=== PATIENT | female | born 1990 | race Caucasian/White ===

== ENCOUNTER 2016-09-02 11:13 | Inpatient (IN) | payer OTHER ==
[~2016-09-02] VITALS: Ht 149.9 cm; Wt 75.0 kg
[~2016-09-02 11:13] MED LIST: EPHEDrine SULFATE 50 MG/5 ML SYG ONE; OXYTOCIN 30 UNITS/LR 500 ML BAG IV ONE; PREN1TAB17 PO
[2016-09-02 11:22] VITALS: Ht 149.9 cm; Wt 75.0 kg
[2016-09-02 11:23] VITALS: BP 127/95; PULSE 93; RESP 19
[2016-09-02] MEDS ORDERED: LACTATED RINGER'S 1,000 ML IV SCH (11:51)
[2016-09-02] MEDS ORDERED: MISOPROSTOL 200 MCG TAB PR PRN ×2 (12:00→18:30)
[2016-09-02] MEDS ORDERED: OXYTOCIN 30 UNITS/LR 500 ML IV PRN ×2 (12:00→18:30)
[2016-09-02] MEDS ORDERED: METHYLERGONOVINE 0.2 MG INJ IM PRN ×2 (12:00→18:30)
[2016-09-02] MEDS ORDERED: CARBOPROST 250 MCG INJ IM PRN ×2 (12:00→18:30)
[2016-09-02] MEDS ORDERED: OXYTOCIN 30 UNITS/LR 500 ML IV SCH (12:00)
[2016-09-02] MEDS ORDERED: CEFAZOLIN 2 GM/50 ML (PMX) 50 ML IV SCH (12:00)
[2016-09-02 12:03] LABS: ADD SCAN DIFF NO
[2016-09-02 12:13] LABS: BASOPHILS % 0.4 % (0.0-2.0); EOSINOPHILS # 0.1 10^3/ul (0.0-0.5); EOSINOPHILS % 0.8 % (0.0-7.0); HEMATOCRIT 41.2 % (37.0-47.0); HEMOGLOBIN 13.3 g/dl (12.0-16.0); LYMPHOCYTES # 2.1 10^3/ul (0.8-2.9); LYMPHOCYTES % 25.3 % (15.0-51.0); MEAN CORPUSCULAR HGB CONC 32.3 g/dl (32.0-37.0); MEAN CORPUSCULAR VOLUME 80.5 fl (82.0-101.0); MEAN PLATELET VOLUME 12.6 fl (7.4-10.4); MONOCYTE # 0.4 10^3/ul (0.3-0.9); NEUTROPHIL # 5.7 10^3/ul (1.6-7.5); NEUTROPHILS % 68.1 % (39.0-77.0); PLATELET COUNT 203 10^3/UL (140-415); RED BLOOD COUNT 5.12 10^6/ul (4.20-5.40); RED CELL DISTRIBUTION WIDTH 16.4 % (11.5-14.5); WHITE BLOOD COUNT 8.3 10^3/ul (4.8-10.8)
[2016-09-02 12:17] LABS: INR 0.95; PARTIAL THROMBOPLASTIN TIME 27.4 Sec (25.0-35.0); PROTIME 12.7 Sec (12.2-14.2)
[2016-09-02] MEDS ORDERED: NALOXONE (0.4 MG/ML) INJ IV PRN (13:00)
[2016-09-02] MEDS ORDERED: DIPHENHYDRAMINE 50 MG INJ IV PRN (13:00)
[2016-09-02] MEDS ORDERED: HYDROmorphONE 1 MG/ML SYG IV PRN ×2 (13:00)
[2016-09-02] MEDS ORDERED: ONDANSETRON 4 MG INJ IV PRN ×2 (13:00)
[2016-09-02] MEDS ORDERED: HYDROmorphONE (0.2 MG/ML) 10ML SYG IV PRN ×3 (13:00)
[2016-09-02] MEDS ORDERED: MEPERIDINE 25 MG INJ IV PRN (13:00)
[2016-09-02] MEDS ORDERED: FENTAnyl 50 MCG/ML VIAL IV PRN (13:00)
[2016-09-02] MEDS ORDERED: CITRIC ACID/NA CITRATE 30 ML CUP PO ONE (13:00)
[2016-09-02] MEDS ORDERED: morphine SULFATE/PF (10 MG/10 ML) INJ ONE (13:05)
[2016-09-02] MEDS ORDERED: PHENYLephrine (100 MCG/ML) 5ML SYG ONE ×3 (13:06→14:06)
--- NOTE | 2016-09-02 14:21 | HP ---
DATE OF ADMISSION: 09/02/2016 HISTORY OF PRESENT ILLNESS: This is a 26-year-old female, 3, para 2 with history o f 2 previous C-sections with EDC of 09/12/2016. Originally was scheduled for 09/07/2016. Came into the hospital with contractions, being prepared to undergo a repeat for the 3rd time. Thi s patient has been under the care of the [facility] and her course was not compl icated with gestational diabetes, -induced hypertension, or any other serious medical or castillo rgical conditions except 2 previous sections. ALLERGIES: SHE IS NOT ALLERGIC TO ANY KNOWN MEDICATION. SOCIAL HISTORY: Does not smoke or drink. FAMILY HISTORY: Not remarkable. REVIEW OF SYSTEMS: Within normal. PHYSICAL EXAMINATION: VITAL SIGNS: 59 inches, 165 pounds. Total weight gain during the 9 pounds. Temperature 97.7, pulse of 75, respirations 16, and blood pressure 156/96. HEAD, EARS, NOSE, AND THROAT: Negative. NECK: Supple. No thyromegaly. LUNGS: Clear to P and A. HEART: Normal sinus rhythm, no murmur. BREASTS: Status compatible with state of the . No abnormal palpable mass. No nipple retr action or discharge. No axillary adenopathy. No supraclavicular adenopathy. ABDOMEN: Measures approximately 37 cm from symphysis pubis with a heart rate in the 130s. Co ntractions every 2 to 5 minutes. PELVIC: Examination deferred. EXTREMITIES: No edema. No varicosities. IMPRESSION: 1. Intrauterine at 38 weeks and 4 days. 2. History of 2 previous sections, in labor. PLAN OF TREATMENT: Repeat section. The patient was counseled regarding the complication o f the surgery including bowel or bladder injury, infection, hemorrhage, and hematoma, and she is cassie ling to go ahead with this procedure. Dictated By: REJI CRAFT/NTS Conf#: [id number] DID#: [id number]
--- NOTE | 2016-09-02 15:14 | OPR ---
DATE OF OPERATION: 09/02/2016 PREOPERATIVE DIAGNOSIS: Intrauterine at 38 weeks and 4 days. History of 2 previous sections, in active labor. POSTOPERATIVE DIAGNOSIS: Intrauterine at 38 weeks and 4 days, history of 2 previous sections, in active labor. PROCEDURE PERFORMED: Repeat section. SURGEON: Reji Pettit MD LAST GREASER: Rakesh Ritchie MD ANESTHESIOLOGIST:DR Coleman FINDINGS: Live baby girl, Apgars 8 and 9. DETAILS OF THE PROCEDURE: Under satisfactory spinal anesthesia, the patient was prepped and draped and placed in supine position, tilted to the left. Pfannenstiel incision was made. Old scar was removed. Incision carried through the subcutaneous tissue. Bleeders brought under control with electrocautery. Fascia incised to the length of the incision. Rectus muscle divided in midline. Peritoneum entered through a transverse incision. Upon entry into the abdominal cavity, it was noted the lower segment of the uterus was extremely thinned out. Normal-appearing tubes and ovaries. Bladder flap was developed. Transverse incision was made in the lower segment of the uterus. Amniotic sac ruptured. Clear amniotic fluid noted. Live baby girl was delivered from unengaged vertex. Nasal oropharyngeal suction was performed. Baby handed to the team for immediate attention. The patient received 20 units of Pitocin. Placenta delivered manually intact. Uterine cavity cleaned with wet sponge and drainage established. Uterus closed in 2 layers using Monocryl #1 in continuous fashion. Peritoneal cavity irrigated with warm saline. Sponge, needle and instrument reported to be correct. Abdominal peritoneum closed with 2-0 chromic catgut continuously. Rectus muscle approximated with a few interrupted 2-0 chromic catgut. Fascia closed with #1 PDS in a continuous fashion. Subcutaneous tissue approximated and repaired with continuous 2-0 chromic catgut and the skin closed with lindsey. Estimated blood loss 600 to 700 mL. Urine bag contained 300 mL of clear urine. The patient tolerated the procedure well, transferred to recovery room in a good condition. Dictated By: REJI PETTIT MD HF/NTS Conf#: [id number] DID#: [id number] MTDD
[2016-09-02 17:55] VITALS: BP 122/85; PULSE 69; RESP 18
[2016-09-02] MEDS ORDERED: CEFAZOLIN 1 GM/50 ML (PMX) 50 ML IVPB SCH (18:30)
[2016-09-02] MEDS ORDERED: ACETAMINOPHEN/CODEINE #3 TAB PO PRN ×2 (18:30)
[2016-09-02] MEDS ORDERED: OXYCODONE/ACETAMINOPHEN (5/325) TAB PO PRN (18:30)
[2016-09-02] MEDS ORDERED: LANOLIN 7 GM TUBE TOP PRN (18:30)
[2016-09-02] MEDS: OXYTOCIN 30 UNITS/LR 500 ML IV SCH ×2 (18:48→23:25)
[2016-09-02 18:55] VITALS: BP 115/77; PULSE 77; RESP 16
[2016-09-02] MEDS: KETOROLAC 30 MG INJ IV PRN (20:11)
[2016-09-02 20:15] VITALS: BP 120/81; PULSE 73; RESP 18
[2016-09-02] MEDS: DIPHENHYDRAMINE 50 MG INJ IV PRN (20:29)
[2016-09-02 23:50] VITALS: BP 115/69; PULSE 87; RESP 18
[2016-09-03] MEDS: OXYTOCIN 30 UNITS/LR 500 ML IV SCH ×3 (03:38→10:12)
[2016-09-03 04:10] VITALS: BP 115/67; PULSE 90; RESP 18
[2016-09-03] MEDS: DIPHENHYDRAMINE 50 MG INJ IV PRN (06:21)
[2016-09-03 08:02] LABS: ADD SCAN DIFF NO
[2016-09-03 08:05] LABS: BASOPHILS % 0.2 % (0.0-2.0); EOSINOPHILS # 0.1 10^3/ul (0.0-0.5); EOSINOPHILS % 0.5 % (0.0-7.0); HEMATOCRIT 29.2 % (37.0-47.0); HEMOGLOBIN 9.4 g/dl (12.0-16.0); LYMPHOCYTES # 2.3 10^3/ul (0.8-2.9); LYMPHOCYTES % 20.9 % (15.0-51.0); MEAN CORPUSCULAR HEMOGLOBIN 26.2 pg (29.0-33.0); MEAN CORPUSCULAR HGB CONC 32.2 g/dl (32.0-37.0); MEAN CORPUSCULAR VOLUME 81.3 fl (82.0-101.0); MEAN PLATELET VOLUME 12.4 fl (7.4-10.4); MONOCYTE # 0.8 10^3/ul (0.3-0.9); MONOCYTES % 7.2 % (0.0-11.0); NEUTROPHIL # 7.7 10^3/ul (1.6-7.5); NEUTROPHILS % 70.9 % (39.0-77.0); PLATELET COUNT 138 10^3/UL (140-415); RED BLOOD COUNT 3.59 10^6/ul (4.20-5.40); WHITE BLOOD COUNT 10.9 10^3/ul (4.8-10.8)
[2016-09-03] MEDS: LACTATED RINGER'S 1,000 ML IV SCH ×2 (08:22→15:00)
[2016-09-03] MEDS: KETOROLAC 30 MG INJ IV PRN (08:22)
[2016-09-03 09:00] VITALS: BP 108/65; PULSE 89; RESP 18
--- NOTE | 2016-09-03 09:08 | CONS ---
Date/Time of Note Date/Time of Note DATE: 09/03/16 TIME: 09:04 Consultation Date/Type/Reason Admit Date/Time Sep 02, 2016 at 11:46 Initial Consult Date 09/03/16 Type of Consultation: Anesthesiology Reason for Consultation Post-op visit 24 HR Interval Summary Free Text/Dictation Pt seen and examined s/p POD#1 received Duramorph spinal anesthetic for post-op pain x24 hours. Pt states she has mild pain which is controlled adequately, no N/V/D/SUNSHINE. Will follow up PRN. Hematology Test 09/02/16 11:50 09/03/16 07:30 Hematocrit 41.2% (37.0-47.0) # 29.2% (37.0-47.0) #L Hemoglobin 13.3g/dl (12.0-16.0) 9.4g/dl (12.0-16.0) #L Mean Corpuscular Hemoglobin 26.0pg (29.0-33.0) L 26.2pg (29.0-33.0) L Mean Corpuscular Hemoglobin Concent 32.3g/dl (32.0-37.0) 32.2g/dl (32.0-37.0) Mean Corpuscular Volume 80.5fl (82.0-101.0) L 81.3fl (82.0-101.0) L Mean Platelet Volume 12.6fl (7.4-10.4) H 12.4fl (7.4-10.4) H Platelet Count 65532^3/UL (140-415) 98175^3/UL (140-415) #L Red Blood Count 5.1210^6/ul (4.20-5.40) # 3.5910^6/ul (4.20-5.40) #L Red Cell Distribution Width 16.4% (11.5-14.5) H 17.0% (11.5-14.5) H White Blood Count 8.310^3/ul (4.8-10.8) # 10.910^3/ul (4.8-10.8) #H Constitutional: no complaints Exam/Review of Systems Vital Signs Vitals Vital Signs Date Time Temp Pulse Resp B/P Pulse Ox O2 Delivery O2 Flow Rate FiO2 09/03/16 04:10 98.9 90 18 115/67 Room Air 09/02/16 11:23 99 Intake and Output 09/02/16 09/02/16 09/03/16 15:00 23:00 07:00 Intake Total 1000 ml 950 ml 1350 ml Output Total 800 ml 844 ml 850 ml Balance 200 ml 106 ml 500 ml Results Result Diagram: 09/03/16 0730 Results 24 hrs Laboratory Tests Test 09/02/16 11:50 09/03/16 07:30 White Blood Count 8.3 # 10.9 #H Red Blood Count 5.12 # 3.59 #L Hemoglobin 13.3 9.4 #L Hematocrit 41.2 # 29.2 #L Mean Corpuscular Volume 80.5 L 81.3 L Mean Corpuscular Hemoglobin 26.0 L 26.2 L Mean Corpuscular Hemoglobin Concent 32.3 32.2 Red Cell Distribution Width 16.4 H 17.0 H Platelet Count 203 138 #L Mean Platelet Volume 12.6 H 12.4 H Neutrophils % 68.1 70.9 Lymphocytes % 25.3 20.9 Monocytes % 5.0 7.2 Eosinophils % 0.8 0.5 Basophils % 0.4 0.2 Nucleated Red Blood Cells % 0.0 0.0 Neutrophils # 5.7 7.7 H Lymphocytes # 2.1 2.3 Monocytes # 0.4 0.8 Eosinophils # 0.1 0.1 Basophils # 0.0 0.0 Nucleated Red Blood Cells # 0.0 0.0 Prothrombin Time 12.7 Prothrombin Time Ratio 1.0 INR International Normalized Ratio 0.95 Activated Partial Thromboplast Time 27.4 Rapid Plasma Reagin NONREACTIVE Hepatitis B Surface Antigen NEGATIVE Medications Medications Current Medications Ketorolac Tromethamine (Toradol) 30 mg Q6H PRN IV PAIN Last administered on t 08:22; Admin Dose 30 MG; Start 09/02/16 at 13:00; Stop 09/03/16 at 12:59 Hydromorphone HCl (Dilaudid) 0.2 mg Q3H PRN IV PAIN LEVEL 1-5; Start 09/02/16 at 13:00; Stop 09/03/16 at 12:59 Hydromorphone HCl (Dilaudid) 0.4 mg Q3H PRN IV PAIN LEVEL 6-10; Start 09/02/16 at 13:00; Stop 09/03/16 at 12:59 Diphenhydramine HCl (Benadryl) 25 mg Q6H PRN IV ITCHING Last administered on t 06:21; Admin Dose 25 MG; Start 09/02/16 at 13:00; Stop 09/03/16 at 12:59 Ondansetron HCl (Zofran Inj) 4 mg Q6H PRN IV NAUSEA AND/OR VOMITING; Start at 13:00; Stop 09/03/16 at 12:59 Acetaminophen/ Codeine Phosphate (Tylenol No.3) 1 tab Q4H PRN PO PAIN LEVEL 4-6 ; Start 09/02/16 at 18:30 Acetaminophen/ Codeine Phosphate (Tylenol No.3) 2 tab Q4H PRN PO PAIN LEVEL 7- 10; Start 09/02/16 at 18:30 Oxycodone/ Acetaminophen (Percocet (5/ 325)) 1 tab Q4H PRN PO PAIN LEVEL 4-6; Start 09/02/16 at 18:30 Oxycodone/ Acetaminophen (Percocet (5/ 325)) 2 tab Q4H PRN PO PAIN LEVEL 7-10; Start 09/02/16 at 18:30 Ibuprofen (Motrin) 600 mg Q6 PO ; Start 09/03/16 at 18:00 Simethicone (Mylicon) 160 mg Q8H PRN PO DISTENSION/GAS/BLOATING; Start at 18:30 Senna/Docusate Sodium (Senokot-S) 1 tab BID PO ; Start 09/03/16 at 09:00 Diphtheria/ Tetanus/Acell Pertussis 0.5 ml 0.5 ml ONCE ONCE IM* ; Start at 09:00; Stop 09/05/16 at 09:01 Oxytocin/Lactated Ringer's 500 ml @ 0 mls/hr ONCE PRN IV For Hemorrhage Management; Start 09/02/16 at 18:30 Methylergonovine Maleate (Methergine) 0.2 mg ONCE PRN IM VAGINAL BLEEDING; Start 09/02/16 at 18:30 Carboprost Tromethamine (Hemabate) 250 mcg ONCE PRN IM VAGINAL BLEEDING; Start 09/02/16 at 18:30 Misoprostol 1000 mcg 1,000 mcg ONCE PRN RI VAGINAL BLEEDING; Start 09/02/16 at 18:30 Oxytocin/Lactated Ringer's 500 ml @ 125 mls/hr Q4H IV Last administered on 03:38; Admin Dose 125 MLS/HR; Start 09/02/16 at 18:12 Influenza Virus Vaccine 0.5 ml 0.5 ml ONCE ONCE IM* ; Start 09/04/16 at 09:00; Stop 09/04/16 at 09:01 Lactated Ringer's (Lr) 1,000 ml @ 125 mls/hr Q8H IV Last administered on 08:22; Admin Dose 125 MLS/HR; Start 09/03/16 at 07:00 DOROTA URRUTIA Sep 03, 2016 09:08
[2016-09-03] MEDS: SENNA/DOCUSATE NA (8.6MG/50MG) TAB PO SCH ×2 (10:33→23:25)
[2016-09-03 12:00] VITALS: BP 120/86; PULSE 97; RESP 18
[2016-09-03 16:00] VITALS: BP 122/78; PULSE 90; RESP 18
--- NOTE | 2016-09-03 16:38 | PN ---
Date/Time of Note Date/Time of Note DATE: 09/03/16 TIME: 16:35 OB Subjective Subjective Subjective Post day 1g Afebrile vital signs stable blood pressure 122/78, hemoglobin 9.4 it was to 0.9 before surgery abdomen soft mildly distended bowel sounds present, lochia normal , extremity normal REJI PETTIT MD Sep 03, 2016 16:38
[2016-09-03] MEDS: IBUPROFEN 600 MG TAB PO SCH ×2 (18:18→23:25)
[2016-09-03 20:00] VITALS: BP 100/56; PULSE 96; RESP 19
[2016-09-04 04:00] VITALS: BP 101/52; PULSE 94; RESP 17
[2016-09-04] MEDS: IBUPROFEN 600 MG TAB PO SCH ×3 (05:32→18:02)
[2016-09-04 08:22] VITALS: BP 108/64; PULSE 87; RESP 18
[2016-09-04] MEDS ORDERED: INFLUENZA VIRUS VACCINE 0.5 ML (DISPENSING) IM* ONE (09:00)
[2016-09-04] MEDS: SENNA/DOCUSATE NA (8.6MG/50MG) TAB PO SCH ×2 (09:27→21:43)
[2016-09-04] MEDS: OXYCODONE/ACETAMINOPHEN (5/325) TAB PO PRN ×2 (11:14→18:02)
[2016-09-04 16:00] VITALS: BP 102/56; PULSE 80; RESP 18
--- NOTE | 2016-09-04 16:14 | PN ---
Date/Time of Note Date/Time of Note DATE: 09/04/16 TIME: 16:12 OB Subjective Subjective Subjective September 04, 2016 Hospital visit post day 2 Post day 1 Patient is doing well, Ambulatory She is afebrile Abdomen is soft , Fundus is firm Moderate amount of lochia Breasts are soft, Nipples are intact No calf tenderness. Incision is healing well. Breast feeding the new born. Current Medications Medications (Trade) Dose Ordered Sig/Major Route PRN Reason Start Time Stop Time Status Last Admin Dose Admin Lactated Ringer's 1,000 ml @ 125 mls/hr Q8H IV 09/02/16 11:51 09/02/16 18:15 DC 09/02/16 12:41 Cefazolin Sodium/ Dextrose 50 ml @ 100 mls/hr ONCE IV 09/02/16 12:00 09/02/16 18:15 DC Oxytocin/Lactated Ringer's 500 ml @ 125 mls/hr ONCE IV 09/02/16 12:00 09/02/16 18:15 DC 09/02/16 15:16 Oxytocin/Lactated Ringer's 500 ml @ 0 mls/hr ONCE PRN IV For Hemorrhage Management 09/02/16 12:00 09/02/16 18:15 DC Methylergonovine Maleate (Methergine) 0.2 mg ONCE PRN IM VAGINAL BLEEDING 09/02/16 12:00 09/02/16 18:15 DC Carboprost Tromethamine (Hemabate) 250 mcg ONCE PRN IM VAGINAL BLEEDING 09/02/16 12:00 09/02/16 18:15 DC Misoprostol (Cytotec) 1,000 mcg ONCE PRN LA VAGINAL BLEEDING 09/02/16 12:00 09/02/16 18:15 DC Citric Acid/ Sodium Citrate (Bicitra) 30 ml ONCE ONCE PO 09/02/16 13:00 09/02/16 13:01 DC 09/02/16 12:52 Naloxone HCl (Narcan) 0.1 mg Q2M PRN IV FOR RESP RATE 8 OR LESS 09/02/16 13:00 09/02/16 18:15 DC Ketorolac Tromethamine (Toradol) 30 mg Q6H PRN IV PAIN 09/02/16 13:00 09/03/16 12:59 DC 09/03/16 08:22 Hydromorphone HCl (Dilaudid) 0.2 mg Q3H PRN IV PAIN LEVEL 1-5 09/02/16 13:00 09/03/16 12:59 DC Hydromorphone HCl (Dilaudid) 0.4 mg Q3H PRN IV PAIN LEVEL 6-10 09/02/16 13:00 09/03/16 12:59 DC Diphenhydramine HCl (Benadryl) 25 mg Q6H PRN IV ITCHING 09/02/16 13:00 09/03/16 12:59 DC 09/03/16 06:21 Ondansetron HCl (Zofran Inj) 4 mg Q6H PRN IV NAUSEA AND/OR VOMITING 09/02/16 13:00 09/03/16 12:59 DC Hydromorphone HCl (Dilaudid (Rec)) 0.2 mg PACU ORDER PRN IV MILD PAIN LEVEL 1-3 09/02/16 13:00 09/02/16 18:15 DC Hydromorphone HCl (Dilaudid (Rec)) 0.4 mg PACU ORDER PRN IV MODERATE PAIN LEVEL 4-6 09/02/16 13:00 09/02/16 18:15 DC Hydromorphone HCl (Dilaudid (Rec)) 0.6 mg PACU ORDER PRN IV SEVERE PAIN LEVEL 7-10 09/02/16 13:00 09/02/16 18:15 DC Fentanyl (Sublimaze) 25 mcg PACU ORDER PRN IV MILD PAIN LEVEL 1-3 09/02/16 13:00 09/02/16 18:15 DC Ondansetron HCl (Zofran Inj) 4 mg PACU ORDER PRN IV NAUSEA AND/OR VOMITING 09/02/16 13:00 09/02/16 18:15 DC Meperidine HCl (Demerol) 25 mg PACU ORDER PRN IV POST-OP RIGORS 09/02/16 13:00 09/02/16 18:15 DC Diphenhydramine HCl (Benadryl) 25 mg PACU ORDER PRN IV PRURITUS 09/02/16 13:00 09/02/16 18:15 DC Morphine Sulfate (Duramorph) 10 mg STK-MED ONCE .ROUTE 09/02/16 13:05 09/02/16 13:06 DC Phenylephrine HCl (Donnie-Synephrine Inj Syg) 500 mcg STK-MED ONCE .ROUTE 09/02/16 13:06 09/02/16 13:07 DC Phenylephrine HCl (Donnie-Synephrine Inj Syg) 500 mcg STK-MED ONCE .ROUTE 09/02/16 13:37 09/02/16 13:38 DC Phenylephrine HCl (Donnie-Synephrine Inj Syg) 500 mcg STK-MED ONCE .ROUTE 09/02/16 14:06 09/02/16 14:07 DC Acetaminophen/ Codeine Phosphate (Tylenol No.3) 1 tab Q4H PRN PO PAIN LEVEL 4-6 09/02/16 18:30 Acetaminophen/ Codeine Phosphate (Tylenol No.3) 2 tab Q4H PRN PO PAIN LEVEL 7-10 09/02/16 18:30 Oxycodone/ Acetaminophen (Percocet (5/ 325)) 1 tab Q4H PRN PO PAIN LEVEL 4-6 09/02/16 18:30 09/04/16 11:14 Oxycodone/ Acetaminophen (Percocet (5/ 325)) 2 tab Q4H PRN PO PAIN LEVEL 7-10 09/02/16 18:30 09/03/16 14:58 Ibuprofen (Motrin) 600 mg Q6 PO 09/03/16 18:00 09/04/16 11:13 Simethicone (Mylicon) 160 mg Q8H PRN PO DISTENSION/GAS/BLOATING 09/02/16 18:30 Senna/Docusate Sodium (Senokot-S) 1 tab BID PO 09/03/16 09:00 09/04/16 09:27 Lanolin (Rqs-D-Scxqrs) 1 applic BEDSIDE MEDICATION PRN TOP BEDSIDE FOR MORALES TO NIPPLES 09/02/16 18:30 09/02/16 20:11 Diphtheria/ Tetanus/Acell Pertussis 0.5 ml 0.5 ml ONCE ONCE IM* 09/05/16 09:00 09/05/16 09:01 Oxytocin/Lactated Ringer's 500 ml @ 0 mls/hr ONCE PRN IV For Hemorrhage Management 09/02/16 18:30 Methylergonovine Maleate (Methergine) 0.2 mg ONCE PRN IM VAGINAL BLEEDING 09/02/16 18:30 Carboprost Tromethamine (Hemabate) 250 mcg ONCE PRN IM VAGINAL BLEEDING 09/02/16 18:30 Misoprostol 1000 mcg 1,000 mcg ONCE PRN LA VAGINAL BLEEDING 09/02/16 18:30 Cefazolin Sodium 50 ml @ 100 mls/hr ONCE IVPB 09/02/16 18:30 09/02/16 18:59 DC 09/02/16 18:49 Oxytocin/Lactated Ringer's 500 ml @ 125 mls/hr Q4H IV 09/02/16 18:12 09/04/16 00:58 DC 09/03/16 03:38 Influenza Virus Vaccine 0.5 ml 0.5 ml ONCE ONCE IM* 09/04/16 09:00 09/04/16 09:01 DC Lactated Ringer's (Lr) 1,000 ml @ 125 mls/hr Q8H IV 09/03/16 07:00 09/04/16 00:58 DC 09/03/16 08:22 Ephedrine Sulfate 50 mg STK-MED ONCE .ROUTE 09/02/16 07:00 09/03/16 17:44 DC Oxytocin/Lactated Ringer's 30 unit STK-MED ONCE IV 09/02/16 07:00 09/03/16 17:44 DC This patient is doing very well for a second post day she is ambulatory very moderate amount of the lochia baby is also doing well ZHANNA SALINAS MD Sep 04, 2016 16:14
[2016-09-04 19:40] VITALS: BP 118/78; PULSE 92
[2016-09-05] MEDS: IBUPROFEN 600 MG TAB PO SCH ×3 (00:07→11:44)
[2016-09-05 03:40] VITALS: BP 104/65; PULSE 86; RESP 19
[2016-09-05 08:00] VITALS: BP 106/77; PULSE 88; RESP 18
[2016-09-05] MEDS: SENNA/DOCUSATE NA (8.6MG/50MG) TAB PO SCH (08:56)
[2016-09-05] MEDS ORDERED: DIPHTH/TET/ACEL PERTUSS (ADULT) 0.5 ML VIAL IM* ONE (09:00)
--- NOTE | 2016-09-05 10:03 | PD.PPDC ---
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
--- NOTE | 2016-09-05 10:07 | DS ---
Date/Time of Note Date/Time of Note DATE: 09/05/16 TIME: 10:04 Discharge Summary Admission/Discharge Info Admit Date/Time Sep 02, 2016 at 11:46 Discharge Date/Time 1100 Final Diagnosis history of previous in active labor Patient Condition: Good Procedures Repeat Hx of Present Illness 38 weeks plus history of previous in labor Hospital Course Uneventful Home Meds Reported Medications Vit-Iron Fumarate-FA ( Tablet) 1 Each Tablet, 1 EACH PO DAILY 06/22/13 Follow-up Plan Appointment clinic in 4 days to discontinue lindsey patient also received information and instructions regarding wound , care at home REJI PETTIT MD Sep 05, 2016 10:07
[2016-09-05] MEDS ORDERED: NA PHOSPHATE/BIPHOS 133 ML ENEMA PR ONE (10:30)
== END 2016-09-05 12:50 | disposition home or self-care (01) | DRG 766 ==
LOC: OBT 11:13 → L-D 11:14 → OBT 11:44 → L-D 11:46 → PP1 17:43
PROVIDERS: ADMIT Obstetrics & Gynecology; ATTEND Obstetrics & Gynecology
PROC: 10D00Z1 Extraction of Products of Conception, Low, Open Approach (ICD-10-PCS; principal; 2016-09-02 13:45)
DX: O34.211 Maternal care for low transverse scar from previous cesarean delivery (principal); Z37.0 Single live birth; Z3A.38 38 weeks gestation of pregnancy
CPT/HCPCS: 85025; 85610; 85730; 86592; 86850; 86900; 86901; 87340; 90686; 90715; 99464; G0463; J0690; J1200; J1885; J2274; J2370; J2590; J3010; J7120